=== PATIENT | female | born 1955 | race Caucasian/White ===

== ENCOUNTER → 2019-12-22 18:19 | Outpatient (CLI) | payer MEDICARE, SELFPAY | PROVIDERS: PCP Family Medicine; Visit Provider Family Medicine | DX: Z03.818 Encounter for observation for suspected exposure to other biological agents ruled out (principal) | CPT/HCPCS: U0003 ==

== ENCOUNTER 2021-02-09 09:35 | Emergency (ER) | payer MEDICARE, SELFPAY ==
[2021-02-09 10:50] VITALS: BP 180/84; PULSE 76; RESP 18; TEMP 36.6; O2SAT 98; BMI 31.6
[2021-02-09 11:06] LABS: UTC Strep Screen (Rapid) Positive (Negative)
--- NOTE | 2021-02-09 11:18 | HMH.EDUTC ---
[facility] [place] Impression: Strep [place] Disposition: Home, Self-Care Condition on Discharge: Good Instructions: DI for Strep Throat Additional Instructions: *Monitor Temp, Over the counter Motrin or Tylenol as directed/as needed Tylenol every 4 hours and Motrin every 6 hours (as long as your family doctor has told you that you can take it) for fever or pain. and straight to ER if unable to lower temp less than 101.0 after medication given *Warm salt water gargles may help to soothe the throat *Throat Lozenges *Warm fluids like tea with honey may help to soothe the throat *Sleep elevated *Humidifier/Vaporizer Follow up IMMEDIATELY for new or worsening symptoms or no Noticeable improvement over the next 48-72 hours. 911 for difficulty breathing or swallowing You were tested for today for COVID19 your test result should be back in the next 24-48 hours, you may check your results on the [facility] My Health Portal if you have trouble logging on you may call You was given a handout with instructions for Self Quarantine and Self isolation for while you wait on test results and what to do if they are positive If you are positive the Health Dept will be contacting you also Make sure to take your Vitamins Vit. C Vit D and Zinc if you can take them Prescriptions: Benzonatate [Benzonatate 100mg cap] 100 mg PO Q8HP PRN #15 cap PRN Reason: Cough Transmission Status: Received by [facility] # Amoxicillin [Amoxicillin 500mg Cap] 500 mg PO TID #30 cap Transmission Status: Received by [facility] # predniSONE [Deltasone 10mg tablet] 10 mg PO BID #10 tab Transmission Status: Received by [facility] # Referrals: Gris Jara [Primary Care Provider] - As needed Time of Disposition: 11:29 Medical Decision Making - Nathan Inquiry Pt receiving controlled substance: No Nathan was queried for this patient: No Vital Signs: 02/09/21 10:50 Temperature 97.9 F Temperature Source Oral Pulse Rate [Right Brachial] 76 Respiratory Rate 18 Blood Pressure [Left Arm] 180/84 H Blood Pressure Mean [Left Arm] 116 Blood Pressure Source [Left Arm] Automatic Cuff Blood Pressure Position [Left Arm] Sitting 02 Sat by Pulse Oximetry 98 Oxygen Delivery Method Room Air - Lab Data Lab results reviewed: Yes: I reviewed the patient's lab results. Lab Results 02/09/21 10:57: Strep [facility] Positive A 02/09/21 11:26: Influenza Type A Ag Negative, Influenza Type B Ag Negative Medical Decision Narrative: Patient states that she has taken amoxicillin and prednisone in the past [facility] [place] - General Stated complaint: fever,sore throat,cough,headache Time Seen by Provider: 02/09/21 11:18 Mode of Arrival: Ambulatory Source of Information: Patient Limitations: No Limitations Description of Symptoms (Recalled from Triage Doc. by RN): PATIENT C/O FEVER, COUGH, SORE THROAT, HEADACHE AND CHILLS SINCE YESTERDAY MORNING HEENT Symptoms (Recalled from RN notes): Yes Resp Symptoms (Recalled from RN notes): Yes Skin Symptoms (Recalled from RN notes): No MS Symptoms (Recalled from RN notes): No Functional Status (Recalled from RN notes): WNL - History of Present Illness Provider Complaint: Patient states that she started feeling bad yesterday morning States that she has continued to have sore throat, headache, body aches, chills fever and cough State that today she was still feeling ill and had lost her voice so she came in to get checked out - Related Data Home Medications Medication Instructions Recorded Confirmed Estrogens, Conjugated [Premarin] 1 tab PO DAILY 02/09/21 02/09/21 Levothyroxine Sodium 125 mcg PO DAILY 02/09/21 02/09/21 [Levothyroxine 125mcg (0.125mg) Tab] Nebivolol HCl [Bystolic] 10 mg PO DAILY 02/09/21 02/09/21 Olmesartan Medoxomil 40 mg PO DAILY 02/09/21 02/09/21 Previous Rx's Medication Instructions Recorded Amoxicillin [Amoxicillin 500mg 500
[2021-02-09 11:33] LABS: UTC Influenza A Antigen Negative (Negative); UTC Influenza B Antigen Negative (Negative)
[2021-02-09 11:38] VITALS: BP 180/84; PULSE 76; RESP 18; TEMP 36.6; O2SAT 98
== END 2021-02-09 11:45 | disposition home or self-care (01) ==
LOC: ER 09:45 → UTC 09:53
PROVIDERS: Emergency Provider Nurse Practitioner; PCP Family Medicine
DX: U07.1 COVID-19 (principal); J02.0 Streptococcal pharyngitis
CPT/HCPCS: 87804; 87880; 99203; C9803; G0463; U0003; U0005